=== PATIENT | male | born 1965 | race Caucasian/White ===

== ENCOUNTER 2016-07-30 17:41 | Emergency (ER) | payer SELFPAY ==
[~2016-07-30] VITALS: Ht 172.7 cm; Wt 102.3 kg
[~2016-07-30 17:41] MED LIST: ALBU8HFA IH; NOCURR
[2016-07-30] MEDS ORDERED: KETOROLAC TROMETHAMINE 60 MG/2 ML VIAL IM ONE (19:00)
[2016-07-30 20:10] VITALS: BP 148/81
== END 2016-07-30 20:13 | disposition home or self-care (01) ==
LOC: EMS 17:45
DX: S13.9XXA Sprain of joints and ligaments of unspecified parts of neck, initial encounter (principal); M54.5 Low back pain; V48.5XXA Car driver injured in noncollision transport accident in traffic accident, initial encounter; Y93.89 Activity, other specified; Y92.410 Unspecified street and highway as the place of occurrence of the external cause; Y99.8 Other external cause status
CPT/HCPCS: 72040; 96372; 99284; J1885